=== PATIENT | female | born 1990 | race Hispanic/Latino ===

== ENCOUNTER → 2017-09-23 | Day surgery (SDC) | payer BC, OTHER ==
--- NOTE | 2017-09-23 10:56 | RAD REPORT ---
EXAM DESCRIPTION: US - Guided FNA Non Breast - 09/23/2017 9:51 am CLINICAL HISTORY: E04.1 COMPARISON: None. TECHNIQUE: Patient presents for ultrasound-guided FNA of an echogenic thyroid nodule approximately 2 .2 cm in size at the isthmus left lobe junction. The procedure, risks and alternatives were discussed with the patient in detail. After answering all questions, both oral and written consent were obtained. Patient had no contraindicated allergy or med ication history. Preliminary imaging again identified the echogenic nodule at the left isthmus. Overlying skin was pre pped and draped in the usual sterile fashion. From a anterior left approach the skin and deeper tissu es were anesthetized with 1% lidocaine. Under sonographic direct visualization a 25 gauge needle was advanced. Multiple to and fro excursions of the needle were made through the nodule. Three additional aspiration procedures performed using the same access site under direct sonographic visualization. A ll obtained material was given to pathology for assessment. At the conclusion of the procedure there was no hematoma or other complication identifiable. Postproc edure care and precaution instructions were given to the patient. IMPRESSION: Ultrasound-guided thyroid nodule fine-needle aspiration was performed as detailed.
== END ==
LOC: FNA 08:31
PROVIDERS: ATTEND Physician Assistant
PROC: 0G9G3ZX Drainage of Left Thyroid Gland Lobe, Percutaneous Approach, Diagnostic (ICD-10-PCS; principal; 2017-09-23)
PROC: BG44ZZZ Ultrasonography of Thyroid Gland (ICD-10-PCS; 2017-09-23)
DX: E04.1 Nontoxic single thyroid nodule (principal)
CPT/HCPCS: 76942; 88162